=== PATIENT | female | born 1980 | race Hispanic/Latino ===

== ENCOUNTER → 2020-01-15 15:24 | Outpatient (CLI) | payer OTHER, SELFPAY ==
--- NOTE | ~2020-01-15 | MM_ITS ---
EXAMINATION: MM screening melia BI w alla HISTORY: Screening mammogram TECHNIQUE: Craniocaudal and mediolateral oblique 3-D tomosynthesis images were obtained and synthetic 2-D images were generated. CAD analysis was submitted and interpreted. COMPARISON: 01/10/2019 BREAST PARENCHYMAL COMPOSITION: The breasts are extremely dense, which lowers the sensitivity of mamm ography. FINDINGS: There is a developing focal asymmetry superiorly in the right breast on MLO view. There is also a focal asymmetry lower inner quadrant of the left breast which is obscured by dense fibroglandu lar tissue. IMPRESSION: 1. Bilateral breast asymmetries. 2. Additional mammographic views and possible breast ultrasound are recommended. BI-RADS Category 0: Incomplete: Needs additional imaging evaluation. Reviewed, dictated and finalized at location A. IMPRESSION: 1. Bilateral breast asymmetries. 2. Additional mammographic views and possible breast ultrasound are recommended . BI-RADS Category 0: Incomplete: Needs additional imaging evaluation.
== END ==
PROVIDERS: Visit Provider Obstetrics & Gynecology
DX: Z12.31 Encounter for screening mammogram for malignant neoplasm of breast (principal); R92.8 Other abnormal and inconclusive findings on diagnostic imaging of breast
CPT/HCPCS: 77063; 77067

== ENCOUNTER 2020-02-02 12:20 | Outpatient (CLI) | payer OTHER, SELFPAY ==
--- NOTE | ~2020-02-02 | MMUS_ITS ---
EXAMINATION: MM diagnostic mammo BI, US breast BI complete HISTORY: Bilateral mammographic asymmetry reported on 01/15/2020 screening mammogram TECHNIQUE: Additional 3-D tomosynthesis images of both breasts were performed and synthetic 2-D image s were generated. CAD analysis was submitted and interpreted. High resolution bilateral complete steve st ultrasound was performed. COMPARISON: 01/15/2020, 01/20/2019 bilateral digital screening mammogram examinations BREAST PARENCHYMAL COMPOSITION: The breasts are extremely dense, which lowers the sensitivity of mamm ography. FINDINGS: MAMMOGRAPHIC FINDINGS: No reproducible suspicious mass or architectural distortion is evident on these supplemental views. However, the dense stroma may obscure masses. For this reason, complete bilateral breast ultrasound e xamination was performed. ULTRASOUND: No suspicious mass or shadowing of either breast is evident. Right breast: 3:00 near nipple: 1.7 x 6.4 x 4.9 mm parallel circumscribed hypoechoic lesion, without suspicious sha dowing or internal vascularity, benign features 3:00 2 cm from nipple: 5.2 x 1.6 x 5.0 mm cyst 7:00 2 cm from nipple: Parallel circumscribed hypoechoic 1.7 x 3.9 x 4.3 mm lesion without posterior shadowing or internal vascularity, with benign features Left breast: 3:00 3 cm from nipple: 6.6 x 2.5 x 5.1 mm parallel circumscribed hypoechoic lesion without internal v ascularity or posterior shadowing, benign features 4:00: Parallel circumscribed 1.4 x 2.5 mm hypoechoic lesion without suspicious shadowing or internal vascularity, benign features 7:00: 6.3 x 3.2 x 5.5 mm cyst 8:00 4 cm from nipple: 4.9 x 2.4 x 3.7 mm cyst with through transmission posterior enhancement Subareolar 2.7 x 3.6 x 4.4 mm cyst IMPRESSION: 1. Bilateral benign breast findings 2. No mammographic evidence of malignancy BI-RADS Category 2: Benign finding(s). Reviewed, dictated and finalized at location A. IMPRESSION: 1. Bilateral benign breast findings 2. No mammographic evidence of malignancy BI-RADS Category 2: Benign finding(s).
== END 2020-02-02 12:21 | disposition home or self-care (01) ==
PROVIDERS: Visit Provider Obstetrics & Gynecology
DX: R92.8 Other abnormal and inconclusive findings on diagnostic imaging of breast (principal)
CPT/HCPCS: 76641; 77066

== ENCOUNTER → 2020-07-04 16:13 | Outpatient (CLI) | payer OTHER, SELFPAY ==
--- NOTE | ~2020-07-04 | XR_ITS ---
EXAMINATION: XR thoracic spine 3V, XR lumbar spine 2-3V DATE: 07/04/2020 17:10 INDICATION: Middle and low back pain. TECHNIQUE: 1. One AP, lateral and lateral swimmer's views of the thoracic spine were obtained. 2. AP, lateral and coned-down lumbosacral views of the lumbar spine were obtained. COMPARISON: None. FINDINGS: Thoracic spine: 14 degree thoracic dextroscoliosis measured between T4 and T10. Vertebral body heights are normal. Mi ld disc height loss and mild degenerative endplate changes at a few levels in the midthoracic spine. Cardiomediastinal silhouette is normal. Visualized portions of the lungs are clear. Lumbar spine: 2 mm retrolisthesis L5 on S1. Alignment is otherwise normal. Vertebral body and disc heights are norm al. Mild lower lumbar facet osteoarthritis. IMPRESSION: 1. 14 degree thoracic dextroscoliosis with minimal spondylosis. 2. 2 mm retrolisthesis L5 on S1 with mild lower lumbar facet osteoarthritis. Reviewed, dictated and finalized at location A. IMPRESSION: 1. 14 degree thoracic dextroscoliosis with minimal spondylosis. 2. 2 mm retrolisthesis L5 on S1 with mild lower lumbar facet osteoarthritis.
== END ==
DX: M51.37 Other intervertebral disc degeneration, lumbosacral region (principal)
CPT/HCPCS: 72072; 72100

== ENCOUNTER 2020-08-30 13:42 | Outpatient (CLI) | payer OTHER, SELFPAY ==
--- NOTE | ~2020-08-30 | MR_ITS ---
EXAMINATION: MR thoracic spine wo con DATE: 08/30/2020 14:33 INDICATION: Scoliosis, unspecified. TECHNIQUE: Magnetic resonance imaging (MRI) of the thoracic spine was performed without intravenous c ontrast. Sagittal localizer T1-weighted FSE of the cervical spine was obtained. Thoracic spine sequen mylene included sagittal T2-weighted FSE, sagittal T1-weighted FSE, sagittal STIR FSE, and axial T2-weig hted FSE. COMPARISON: Thoracic spine radiographs 07/04/2020 FINDINGS: There is kyphosis of cervical spine. There is 11 degrees dextroscoliosis of thoracic spine. Vertebral body heights are normal. There is mildly decreased disc height from T3-T4 through T7-T8. T he discs are mildly bulging from T3-T4 through T6-T7 with mild central canal stenosis. There is multi level mild facet joint osteoarthritis. No neural foraminal stenosis. The spinal cord signal intensity is normal. IMPRESSION: 1. Mild thoracic spondylosis. 2. Thoracic dextroscoliosis. 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
== END 2020-08-30 13:43 | disposition home or self-care (01) ==
PROVIDERS: PCP Internal Medicine; Visit Provider Nurse Practitioner
DX: M41.9 Scoliosis, unspecified (principal)
CPT/HCPCS: 72146

== ENCOUNTER → 2021-02-27 16:01 | Outpatient (CLI) | payer OTHER, SELFPAY ==
--- NOTE | ~2021-02-27 | MM_ITS ---
EXAMINATION: MM screening melia BI w alla HISTORY: Screening mammogram TECHNIQUE: Craniocaudal and mediolateral oblique 3-D tomosynthesis images were obtained and synthetic 2-D images were generated. CAD analysis was submitted and interpreted. COMPARISON: 02/02/2020 bilateral diagnostic digital mammogram and complete bilateral breast ultrasound 01/15/2020, 01/20/2019 bilateral digital screening mammogram examinations BREAST PARENCHYMAL COMPOSITION: The breasts are extremely dense, which lowers the sensitivity of mamm ography. FINDINGS: There is no evidence of suspicious mass, calcification, or architectural distortion to sugg est malignancy in either breast. There has been no suspicious interval change. IMPRESSION: 1. No mammographic evidence of malignancy. 2. Recommend routine screening mammography in one year. BI-RADS Category 1: Negative Reviewed, dictated and finalized at location A.
== END ==
PROVIDERS: Visit Provider Advanced Practice Midwife
DX: Z12.31 Encounter for screening mammogram for malignant neoplasm of breast (principal)
CPT/HCPCS: 77063; 77067

== ENCOUNTER → 2022-07-07 14:32 | Outpatient (CLI) | payer OTHER, SELFPAY ==
--- NOTE | ~2022-07-07 | MM_ITS ---
EXAMINATION: MM screening [facility] BI w alla HISTORY: Screening mammogram TECHNIQUE: Craniocaudal and mediolateral oblique 3-D tomosynthesis images were obtained and synthetic 2-D images were generated. CAD analysis was submitted and interpreted. COMPARISON: 02/27/2021, 02/02/2020, 01/15/2020 BREAST PARENCHYMAL COMPOSITION: The breasts are heterogeneously dense, which may obscure small masses . FINDINGS: No suspicious mass, calcification, or architectural distortion are identified in either shahrzad ast to suggest malignancy. There has been no suspicious interval change. IMPRESSION: 1. No mammographic evidence of malignancy. 2. Recommend routine screening mammography in one year. BI-RADS Category 1: Negative Reviewed, dictated and finalized at location A.
== END ==
PROVIDERS: PCP Advanced Practice Midwife; Visit Provider Nurse Practitioner
DX: Z12.31 Encounter for screening mammogram for malignant neoplasm of breast (principal)
CPT/HCPCS: 77063; 77067

== ENCOUNTER 2024-01-05 12:55 | Emergency (ER) | payer OTHER, SELFPAY ==
[2024-01-05 13:04] VITALS: BP 116/78; PULSE 80; RESP 16; TEMP 37.4; O2SAT 100
--- NOTE | 2024-01-05 13:10 | ED.ANIMALBIT ---
HPI - Animal Bite General Chief Complaint: Animal Bite Stated Complaint: DOG BITE Time Seen by Provider: 01/05/24 13:05 Source: patient and family Mode of arrival: ambulatory Limitations: no limitations History of Present Illness HPI narrative: Inna is a 43-year-old female patient presenting to the clinic today with complaints of a dog bite to the left wrist. She reports that this was a provoked bite from her own dog. States the dog was injured when the bit occured. She reports the dog's immunizations were up-to-date. States that the bite occurred last night and she cleansed the area after the bite and then covered it and over the night it became more red and swollen and tender. Had to put the dog down because it broke its back. She denies any fever, chills, body aches. She is not diabetic. Tetanus is not up-to-date Related Data Home Medications Medication Instructions Recorded Confirmed norethindrone 1 mg-ethinyl 1 tablet PO DAILY 08/22/20 01/05/24 estradiol 10 mcg (24)-iron 10 mcg(2) tablet (Lo Loestrin Fe) Allergies Allergy/AdvReac Type Severity Reaction Status Date / Time Penicillins Allergy Fever Verified 01/05/24 13:12 Review of Systems Review of Systems: Pertinent positives per HPI. Patient denies any fever, chills, rash, headache, visual changes, dizziness, cough, runny nose, sore throat, shortness of breath, chest pain, palpitations, nausea, vomiting, diarrhea, constipation, abdominal pain, or any urinary issues. PMFSH Surgical History Surgical History H/O removal of cyst breast (benign) 2000 Family History Family History Grandparent Diabetes mellitus Grandparent Brain tumor Social History Social History Smoking status: Never smoker Alcohol intake: current Alcohol use details: occasional Comments At the time of my signature, I reviewed and agree with the nursing past medical, surgical, social, and family history. There is no relevant family history pertinent to the patient complaint. Exam Narrative: General: Well-developed, well nourished, in no apparent distress Head: Normocephalic, atraumatic. Cardio: Regular rate and rhythm, s1 and s2 normal, no murmur appreciated. Resp: Clear to auscultation bilaterally, no rhonchi, rales, wheezing or rubs. Integumentary: [place], warm, and dry, tender area measuring 1.5 x 2 cm of induration without fluctuance- redness, mild erythema, and swelling noted to the left lateral wrist, no obvious abscess, rings were removed in the clinic today Course Course Emergency Course: Portions of this record may have been created with voice recognition software. Level of Care: Express Care Visit Vital Signs Vital signs: Vital Signs Temperature 37.4 C 01/05/24 13:04 Pulse Rate 80 01/05/24 13:04 Respiratory Rate 16 01/05/24 13:04 Blood Pressure 116/78 01/05/24 13:04 Pulse Oximetry 100 01/05/24 13:04 Temperature 37.4 C 01/05/24 13:04 Pulse Rate 80 01/05/24 13:04 Respiratory Rate 16 01/05/24 13:04 Blood Pressure 116/78 01/05/24 13:04 Pulse Oximetry 100 01/05/24 13:04 Vital signs reviewed MDM - Animal Bite MDM Narrative Medical decision making narrative: At the time of visit patient is resting comfortably on the exam table. Patient appears to be nontoxic. Plan: Consent obtained for ring removal the clinic today. Patient has infected puncture wound to the left wrist due to a dog bite. Tdap updated. States she is allergic to penicillin. Prescription for Bactrim and metronidazole was sent to the pharmacy. Discussed if the area gets any worse to go to the ER as she may need IV antibiotics. Supportive measures were discussed with the patient and they voiced understanding discharge instructions and agrees to treatment p
[2024-01-05] MEDS: TETANUS,DIPHTHERIA,AC PERTUSSIS ADULT (0.5 ML) BOOSTRIX IM (13:21)
--- NOTE | 2024-01-05 13:53 | PC.NURSE ---
WEDDING RINGS WERE TAKEN OFF BY PT, GOLD TONE RING WAS CUT OFF BY RN DUE TO HAND AND FINGER SWELLING. ALL RINGS WERE RETURNED TO PT.
--- NOTE | 2024-01-05 13:56 | PC.NURSE ---
PT REPORTS HER DOG WAS HURT AND SHE REACHED OUT TO HELP HER WHEN SHE WAS BITTEN. PT REPORTS THEY HAD TO PUT THE DOG DOWN, DOG BITE FORM WAS COMPLETED AND FAXED TO [facility]. SWELLING IS NOTED TO LEFT HAND AND FINGERS, RINGS REMOVED.
== END 2024-01-05 13:52 | disposition home or self-care (01) ==
PROVIDERS: Emergency Provider Nurse Practitioner Family
DX: S61.532A Puncture wound without foreign body of left wrist, initial encounter (principal); L08.9 Local infection of the skin and subcutaneous tissue, unspecified; W54.0XXA Bitten by dog, initial encounter; Z23 Encounter for immunization
CPT/HCPCS: 90471; 90715; 99213; G0463

== ENCOUNTER 2024-01-05 20:25 | Observation (INO) | payer OTHER, SELFPAY ==
--- NOTE | ~2024-01-05 | XR_ITS ---
Left wrist Technique: PA, oblique, lateral, and ulnar deviation views were obtained. Clinical History: Dog bite Findings: No acute fracture or dislocation is seen. Osseous alignment is anatomic. Joint spaces are p reserved. Soft tissues are unremarkable. Impression: Unremarkable left wrist radiographs. Reviewed, dictated and finalized at location . Impression: Unremarkable left wrist radiographs.
[2024-01-05 20:43] VITALS: BP 135/72; PULSE 80; RESP 14; TEMP 37.1; O2SAT 98
--- NOTE | 2024-01-05 23:33 | ED.ANIMALBIT ---
HPI - Animal Bite General Chief Complaint: Animal Bite <JESSICA Perez Last Filed: 01/06/24 01:26> Stated Complaint: dog bite yesterday <JESSICA Perez Last Filed: 01/06/24 01:26> Time Seen by Provider: 01/05/24 22:50 <JESSICA Perez Last Filed: 01/06/24 01:26> Source: patient <JESSICA Perez Last Filed: 01/06/24 01:26> Mode of arrival: ambulatory <JESSICA Perez Last Filed: 01/06/24 01:26> Limitations: no limitations <JESSICA Perez Last Filed: 01/06/24 01:26> History of Present Illness HPI narrative: This is a 43-year-old female that presents to the emergency department for left wrist pain and swelling. Reports she was bit by her dog last night. Her dog is up-to-date on its vaccinations. She was seen in urgent care today and updated on her tetanus vaccination and started on oral antibiotics. Reports she has continued to get worse since then in started to note streaking up her arm which prompted her to be seen in the ER. Denies fevers or drainage. <JESSICA Perez Last Filed: 01/06/24 01:26> Related Data Home Medications: Home Medications Medication Instructions Recorded Confirmed norethindrone 1 mg-ethinyl 1 tablet PO DAILY 08/22/20 01/06/24 estradiol 10 mcg (24)-iron 10 mcg(2) tablet (Lo Loestrin Fe) <JESSICA Perez Last Filed: 01/06/24 01:26> Allergies/Adverse Reactions: Allergies Allergy/AdvReac Type Severity Reaction Status Date / Time Penicillins Allergy Fever Verified 01/05/24 20:26 <JESSICA Perez Last Filed: 01/06/24 01:26> Review of Systems Review of Systems: CONSTITUTIONAL: Denies fever SKIN: Reports erythema MUSCULOSKELETAL: Denies joint pain <JESSICA Perez Last Filed: 01/06/24 01:26> All systems reviewed & are unremarkable except as noted in HPI and below <Gita Disla PA-C - Last Filed: 01/06/24 01:26> PMFSH Past Medical History Medical History: Medical History (Updated 01/06/24 @ 01:16 by Gita Disla PA-C) No active medical problems <Gita Disla PA-C - Last Filed: 01/06/24 01:26> Surgical History Surgical History: Surgical History H/O removal of cyst breast (benign) 2000 <Gita Disla PA-C - Last Filed: 01/06/24 01:26> Family History Family History: Family History Grandparent Diabetes mellitus Grandparent Brain tumor <Gita Disla PA-C - Last Filed: 01/06/24 01:26> Social History Social History: Social History Smoking status: Never smoker Alcohol intake: former Alcohol use details: occasional Substance use: never Do You Feel Safe in your Home?: Yes Lack of Transportation: No Lack of Food: Never True Current Housing: I Have Housing Concerned About Future Housing: No Difficulty Paying Gas/Electric Bills: No Difficulty Paying for Meds: No Currently Unemployed: No Education: Master's Degree or Higher Difficulty w/ Childcare or Family Care: No Spiritual care concerns: No <Gita Disla PA-C - Last Filed: 01/06/24 01:26> Exam Narrative: GENERAL: Well-appearing, well-nourished, and in no acute distress. HEAD: Normocephalic, atraumatic. EYES: EOMI. CHEST: No respiratory distress HEART: Regular rate EXTREMITIES: Normal range of motion. Left wrist and hand with erythema and edema without focal fluctuance. Small puncture wound noted to the dorsal aspect of the wrist. Normal radial pulse. Normal sensation SKIN: Warm, dry, no rash. NEURO: No focal deficits. Alert and oriented x3. PSYCH: Normal mood and affect <Gita Disla PA-C - Last Filed: 01/06/24 01:26> Course Course Emergency Course: Patient updated on her workup and recommendation for admission
[2024-01-05 23:58] LABS: Basophils Percent Auto 0.2 % (0.2-1.2); Eosinophils Absolute Auto 0.1 K/mm3 (0-0.3); Eosinophils Percent Auto 0.8 % (0-4.4); Hematocrit 41.6 % (37.0-47.0); Hemoglobin 13.9 g/dL (12.0-15.0); Immature Granulocyte Absolute 0.05 K/mm3 (0.00-0.031); Immature Granulocyte Percent A 0.4 % (0-0.5); Lymphocytes Absolute Auto 1.71 K/mm3 (0.9-3.2); Lymphocytes Percent Auto 12.8 % (18.3-44.2); Mean Corpuscular HGB Conc 33.4 g/dl (32-36); Mean Corpuscular Hemoglobin 29.6 pg (26-34); Mean Corpuscular Volume 88.7 fl (80-100); Monocytes Absolute Auto 0.7 K/mm3 (0.1-0.6); Monocytes Percent Auto 5.5 % (2.6-8.5); Neutrophils Absolute Auto 10.8 K/mm3 (1.3-6.7); Neutrophils Percent Auto 80.3 % (45.5-73.1); Platelet Count Result 237 k/mm3 (150-375); Red Blood Count 4.69 M/mm3 (4.2-5.4); Red Cell Distribution Width 13.9 % (11.5-14.5); White Blood Count 13.4 K/mm3 (4.5-10.0)
[2024-01-06] VITALS (7 sets, daily range): BP systolic 109–136; BP diastolic 61–76; PULSE 65–85; RESP 16–18; TEMP 36.2–36.6; O2SAT 100; BMI 24.6
[2024-01-06 00:11] LABS: Anion Gap 8 mmol/L (4-12); Blood Urea Nitrogen 9 mg/dL (7-17); CRP 4.6 mg/dL (<1.0); Calcium 9.3 mg/dL (8.4-10.2); Carbon Dioxide 24 mmol/L (22-30); Chloride 107 mmol/L (98-107); Estimated Glomerular Filt Rate > 60; Glucose 105 mg/dL (65-110); Potassium 3.7 mmol/L (3.4-5.0); Sodium 139 mmol/L (137-145)
[2024-01-06 00:27] LABS: Erythrocyte Sedimentation Rate 25 mm/hr (0-20)
[2024-01-06] MEDS: cefTRIAXone 2 GM/NS 100 ML 2 GM/100 ML BAG IVPB (01:25)
[2024-01-06] MEDS: metroNIDAZOLE 500 MG/ISO 100ML 500 MG/100 ML BAG 100 MG IVPB ×3 (01:25→16:52)
--- NOTE | 2024-01-06 03:55 | ADMGEN ---
This patient, Deidra Cassidy, was admitted to Medical Room 343-01. Patient/family oriented to hospital policies and general routines including ID bracelet, bed and alarms, visiting hours, pain management, procedures, bathroom and other care routines, personal items, smoking policy, room service/diet, and visiting hours. Information on how to activate the Rapid Response Team has been discussed. Patient/Family are encouraged to report perceived risks to care and to ask questions if they do not understand what they are told or what they should do.
[2024-01-06] MEDS: MORPHINE SULFATE (*CRX) 2 MG/ML INJ 1 MG IV PUSH (04:23)
--- NOTE | 2024-01-06 05:46 | PM.IMHP ---
H&P: HPI History of Present Illness Date/Time: 01/06/24 05:46 Chief Complaint: Left wrist pain Narrative: A 43-year-old female presented to the emergency room with left wrist pain and swelling. Reports she was bit by a dog last night. Her dog is fully vaccinated. Patient went to urgent care center and received a tetanus vaccine and was started on oral antibiotics. Patient wrist pain continued to get worse and the hand was more tender she started feeling some tightness around the wrist band denied fever drainage. No nausea no vomiting no hematemesis Review of Systems Review of Systems: No fevers chills nausea vomiting. No double vision no blurry vision. No difficulty hearing or sinus complaints. No chest pain shortness of breath fever palpitation dizziness ankle swelling. No coughing wheezing chills. No nausea constipation diarrhea abdominal pain reflux. No urgency frequency of urination. No hematuria. skin rash left wrist No anxiety depression difficulty sleeping. No bleeding gums enlarged glands. No muscle ache back pain joint stiffness. No loss of strength numbness headache tremor or loss of memory. [facility] Past Medical History Medical History (Updated 01/06/24 @ 01:16 by Gita Disla PA-C) No active medical problems Surgical History Surgical History H/O removal of cyst breast (benign) 2000 Family History Family History Grandparent Diabetes mellitus Grandparent Brain tumor Social History Social History Smoking status: Never smoker Alcohol intake: former Alcohol use details: occasional Substance use: never Do You Feel Safe in your Home?: Yes Lack of Transportation: No Lack of Food: Never True Current Housing: I Have Housing Concerned About Future Housing: No Difficulty Paying Gas/Electric Bills: No Difficulty Paying for Meds: No Currently Unemployed: No Education: Master's Degree or Higher Difficulty w/ Childcare or Family Care: No Spiritual care concerns: No Meds Home Medications and Allergies Home Medications Medication Instructions Recorded Confirmed Type norethindrone 1 mg-ethinyl 1 tablet PO DAILY 08/22/20 01/06/24 History estradiol 10 mcg (24)-iron 10 mcg(2) tablet (Lo Loestrin Fe) Allergies Allergy/AdvReac Type Severity Reaction Status Date / Time Penicillins Allergy Fever Verified 01/05/24 20:26 Vital Signs Vital Signs - 24 hr 01/05/24 20:43 01/06/24 00:29 01/06/24 02:04 Temperature 37.1 C Pulse Rate 80 70 65 Respiratory Rate 14 16 16 Blood Pressure 135/72 136/76 112/73 Pulse Oximetry 98 100 100 Oxygen Delivery Room Air 01/06/24 03:37 01/06/24 04:33 Temperature 36.5 C Pulse Rate 85 78 Respiratory Rate 16 18 Blood Pressure 109/68 124/72 Pulse Oximetry 100 100 Oxygen Delivery Exam Narrative: GENERAL: Well appearing, no acute distress. HEAD: Normocephalic, atraumatic. NECK: Supple. No adenopathy, no masses. RESPIRATORY: respirations nonlabored. , no rales, wheezing. CARDIOVASCULAR: Regular rate and rhythm without murmurs, . Peripheral pulses 2+ and equal bilaterally. ABDOMINAL: Soft, nontender, nondistended, no hepatosplenomegaly. Normoactive BS. MUSCULOSKELETAL: no Epigastric and no hypochondrial tenderness SKIN: . Left wrist and hand with erythema and edema without focal fluctuance. Small puncture wound noted to the dorsal aspect of the wrist. Normal radial pulse. Normal sensation NEURO: A&O X3. Moves all extremities H&P: Results Labs Labs: Short CBC 01/05/24 Range/Units 23:50 WBC 13.4 H (4.5-10.0) K/mm3 Hgb 13.9 (12.0-15.0) g/dL Hct 41.6 (37.0-47.0) % Plt Count 237 (150-375) k/mm3 [facility] 01/05/24 23:50 Sodium 139 Potassium 3.7 Chloride 107 Carbon Di
[2024-01-06 06:00] LABS: Basophils Percent Auto 0.3 % (0.2-1.2); Eosinophils Absolute Auto 0.1 K/mm3 (0-0.3); Eosinophils Percent Auto 0.9 % (0-4.4); Hematocrit 39.7 % (37.0-47.0); Hemoglobin 13.4 g/dL (12.0-15.0); Immature Granulocyte Absolute 0.04 K/mm3 (0.00-0.031); Immature Granulocyte Percent A 0.4 % (0-0.5); Lymphocytes Absolute Auto 1.16 K/mm3 (0.9-3.2); Lymphocytes Percent Auto 11.6 % (18.3-44.2); Mean Corpuscular HGB Conc 33.8 g/dl (32-36); Mean Corpuscular Hemoglobin 29.8 pg (26-34); Mean Corpuscular Volume 88.4 fl (80-100); Monocytes Absolute Auto 0.6 K/mm3 (0.1-0.6); Monocytes Percent Auto 5.5 % (2.6-8.5); Neutrophils Absolute Auto 8.2 K/mm3 (1.3-6.7); Neutrophils Percent Auto 81.3 % (45.5-73.1); Platelet Count Result 203 k/mm3 (150-375); Red Blood Count 4.49 M/mm3 (4.2-5.4); Red Cell Distribution Width 13.8 % (11.5-14.5)
[2024-01-06 06:44] LABS: Anion Gap 7 mmol/L (4-12); Blood Urea Nitrogen 8 mg/dL (7-17); Calcium 8.8 mg/dL (8.4-10.2); Carbon Dioxide 21 mmol/L (22-30); Chloride 111 mmol/L (98-107); Estimated Glomerular Filt Rate > 60; Glucose 101 mg/dL (65-110); Sodium 139 mmol/L (137-145)
[2024-01-06] MEDS: ACETAMINOPHEN 325 MG TABLET 650 MG PO ×3 (06:49→16:54)
--- NOTE | 2024-01-06 09:15 | PM.IMPN ---
Progress Note: A&P Assessment and Plan (1) Cellulitis of left upper extremity: Code(s): L03.114 - Cellulitis of left upper limb Status: Acute (2) Scoliosis deformity of spine: Code(s): M41.9 - Scoliosis, unspecified Status: Acute Plan (1) Cellulitis of left upper extremity: ?Code(s): L03.114 - Cellulitis of left upper limb ?Status:?Acute Plan Cellulitis/dog bite/left wrist pain IV fluid resuscitation Monitor lactic acid levels Repeat CBC CMP Two sets of Blood cultures IV antibiotics Rocephin Wound care consult.? Watch for any severe pain and compartment syndrome xr showed Unremarkable left wrist radiographs. Radial pulses palpable Continue ceftriaxone 2 g IV, Flagyl 500 mg q.8 hour IV, add clindamycin 900 mg q.day are IV Subjective Date/time seen: 01/06/24 09:15 Interval history: I saw exam patient today, patient still has severe left arm pain, the left arm was swollen, tender by palpation. Patient denies fever, chills, chest pain, shortness of breath, abdomen pain, nausea vomiting diarrhea Exam Narrative: GENERAL: Well appearing, no acute distress. HEAD: Normocephalic, atraumatic. NECK: Supple. No adenopathy, no masses. RESPIRATORY: respirations nonlabored. , no rales, wheezing. CARDIOVASCULAR: Regular rate and rhythm without murmurs, . Peripheral pulses 2+ and equal bilaterally. ABDOMINAL: Soft, nontender, nondistended, no hepatosplenomegaly. Normoactive BS. MUSCULOSKELETAL: no Epigastric and no hypochondrial tenderness SKIN: . Left wrist and hand with erythema and edema without focal fluctuance. Small puncture wound noted to the dorsal aspect of the wrist. Normal radial pulse. Normal sensation NEURO: A&O X3. Moves all extremities Objective Data Vital Signs Vital Signs: Vital Signs - 24 hr 01/05/24 20:43 01/06/24 00:29 01/06/24 02:04 Temperature 98.8 F Pulse Rate 80 70 65 Respiratory Rate 14 16 16 Blood Pressure 135/72 136/76 112/73 Pulse Oximetry 98 100 100 Oxygen Delivery Room Air 01/06/24 03:37 01/06/24 04:33 01/06/24 06:00 Temperature 97.7 F 97.7 F Pulse Rate 85 78 65 Respiratory Rate 16 18 18 Blood Pressure 109/68 124/72 116/63 Pulse Oximetry 100 100 100 Oxygen Delivery 01/06/24 08:00 Temperature Pulse Rate Respiratory Rate Blood Pressure Pulse Oximetry Oxygen Delivery Room Air Intake/Output Intake/Output: Intake & Output 01/03/24 01/04/24 01/05/24 01/06/24 23:59 23:59 23:59 23:59 Intake Total 750 Balance 750 Meds/Results Medications: Active Medications Generic Name Dose Route Start Last Admin Trade Name Freq PRN Reason Stop Dose Admin Acetaminophen 650 mg 01/06/24 05:43 01/06/24 06:49 Acetaminophen 325 Mg Tablet PO 650 mg Q4H PRN Administration Mild Pain (1-3) or Fever Hydrocodone Bitart/Acetaminophen 1 tab 01/06/24 05:43 Hydrocodone/Acetaminophen (*Crx) 5-325 Mg Tablet PO Q4H PRN Moderate Pain (4-6) Ceftriaxone Sodium 2 gm in 100 mls @ 200 mls/hr 01/07/24 01:00 Rocephin 2 Gm/Ns 100 Ml IVPB Q24H MANDIE Metronidazole 500 mg in 100 mls @ 100 mls/hr 01/06/24 09:00 01/06/24 08:48 Flagyl 500 Mg/Iso Soln 100 Ml IVPB 100 mls/hr Q8H MANDIE Administration Miscellaneous Information 0 each 01/06/24 06:20 Norethindrone-E.Estradiol-Iron [Lo Loestrin Fe] 1 Mg-10 Mcg (24)/10 Mcg- Nonformulary. Ple XX 02/05/24 06:19 CLARIFY MANDIE Morphine Sulfate 1 mg 01/06/24 04:08 01/06/24 04:23 Morphine Sulfate (*Crx) 2 Mg/Ml Inj IV PUSH 1 mg Q4H PRN Administration Pain Non-Formulary Medication 1 tablet 01/06/24 09:00 Norethindrone-E.Estradiol-Iron [Lo Loestrin Fe] PO 02/05/24 08:59 DAILY [facility] Radiology Results: ITS Impressions Wrist X-Ray 01/06/24 05:39 Impression: Unremarkable left wrist radiographs. Labs Labs: Laboratory Results - last 24 hr 01/05/24 01/06/24 23:50 05:53 WBC 13.4 H 10.
[2024-01-06] MEDS: CLINDAMYCIN 900 MG/D5W 50 ML 900 MG/50 ML PIGGYBACK 50 MG IVPB (17:59)
[2024-01-07] MEDS: ACETAMINOPHEN 325 MG TABLET 650 MG PO
[2024-01-07] MEDS: cefTRIAXone 2 GM/NS 100 ML 2 GM/100 ML BAG IVPB (00:01)
[2024-01-07] MEDS: CLINDAMYCIN 900 MG/D5W 50 ML 900 MG/50 ML PIGGYBACK 50 MG IVPB ×3 (00:31→17:06)
[2024-01-07] MEDS: metroNIDAZOLE 500 MG/ISO 100ML 500 MG/100 ML BAG 100 MG IVPB ×3 (00:31→18:20)
[2024-01-07 06:00] VITALS: BP 105/56; PULSE 70; RESP 18; TEMP 36.4; O2SAT 100
[2024-01-07] MEDS: SACCHAROMYCES BOULARDII 250 MG CAPSULE PO ×2 (09:03→17:05)
[2024-01-07] MEDS: ONDANSETRON INJ 4 MG/2 ML VIAL IV PUSH (09:03)
--- NOTE | 2024-01-07 09:10 | PM.IMPN ---
Progress Note: A&P Assessment and Plan (1) Cellulitis of left upper extremity: Code(s): L03.114 - Cellulitis of left upper limb Status: Acute (2) Scoliosis deformity of spine: Code(s): M41.9 - Scoliosis, unspecified Status: Acute Plan (1) Cellulitis of left upper extremity: ?Code(s): L03.114 - Cellulitis of left upper limb ?Status:?Acute Plan Cellulitis/dog bite/left wrist pain IV fluid resuscitation Monitor lactic acid levels Repeat CBC CMP Two sets of Blood cultures IV antibiotics Rocephin Wound care consult.? Watch for any severe pain and compartment syndrome xr showed Unremarkable left wrist radiographs. Radial pulses palpable Continue ceftriaxone 2 g IV, Flagyl 500 mg q.8 hour IV, add clindamycin 900 mg q.day are IV 01/06: Cellulitis of left arm has subsided significantly, c/w current abx, may change to oral abx tm and discharge patient Subjective Date/time seen: 01/07/24 09:10 Interval history: I saw exam patient today, cellulitis of left arm has subsided significantly, still has some tenderness around bite wound. Patient denies fever, chills, chest pain, shortness of breath, abdomen pain, but has nausea vomiting, and some loose stools Exam Narrative: GENERAL: Well appearing, no acute distress. HEAD: Normocephalic, atraumatic. NECK: Supple. No adenopathy, no masses. RESPIRATORY: respirations nonlabored. , no rales, wheezing. CARDIOVASCULAR: Regular rate and rhythm without murmurs, . Peripheral pulses 2+ and equal bilaterally. ABDOMINAL: Soft, nontender, nondistended, no hepatosplenomegaly. Normoactive BS. MUSCULOSKELETAL: no Epigastric and no hypochondrial tenderness SKIN: . Small puncture wound noted to the dorsal aspect of the wrist. Normal radial pulse. Normal sensation NEURO: A&O X3. Moves all extremities Objective Data Vital Signs Vital Signs: Vital Signs - 24 hr 01/06/24 14:37 01/06/24 20:00 01/06/24 23:59 Temperature 97.1 F L 97.8 F Pulse Rate 71 72 Respiratory Rate 18 18 Blood Pressure 126/71 112/61 Pulse Oximetry 100 100 Oxygen Delivery Room Air 01/07/24 06:00 Temperature 97.6 F Pulse Rate 70 Respiratory Rate 18 Blood Pressure 105/56 L Pulse Oximetry 100 Oxygen Delivery Intake/Output Intake/Output: Intake & Output 01/04/24 01/05/24 01/06/24 01/07/24 23:59 23:59 23:59 23:59 Intake Total 2820 250 Balance 2820 250 Meds/Results Medications: Active Medications Generic Name Dose Route Start Last Admin Trade Name Freq PRN Reason Stop Dose Admin Acetaminophen 650 mg 01/06/24 05:43 01/07/24 00:00 Acetaminophen 325 Mg Tablet PO 650 mg Q4H PRN Administration Mild Pain (1-3) or Fever Hydrocodone Bitart/Acetaminophen 1 tab 01/06/24 05:43 Hydrocodone/Acetaminophen (*Crx) 5-325 Mg Tablet PO Q4H PRN Moderate Pain (4-6) Ceftriaxone Sodium 2 gm in 100 mls @ 200 mls/hr 01/07/24 01:00 01/07/24 00:31 Rocephin 2 Gm/Ns 100 Ml IVPB Infused Q24H AMNDIE Infusion Metronidazole 500 mg in 100 mls @ 100 mls/hr 01/06/24 09:00 01/07/24 01:31 Flagyl 500 Mg/Iso Soln 100 Ml IVPB Infused Q8H MANDIE Infusion Clindamycin Phosphate 900 mg in 50 mls @ 50 mls/hr 01/06/24 17:00 01/07/24 09:03 Cleocin 900 Mg/D5w 50 Ml IVPB 50 mls/hr Q8H MANDIE Administration Morphine Sulfate 1 mg 01/06/24 04:08 01/06/24 04:23 Morphine Sulfate (*Crx) 2 Mg/Ml Inj IV PUSH 1 mg Q4H PRN Administration Pain Ondansetron HCl 4 mg 01/07/24 08:15 01/07/24 09:03 Ondansetron Inj 4 Mg/2 Ml Vial IV PUSH 4 mg Q4H PRN Administration Nausea And Vomiting Saccharomyces Boulardii 250 mg 01/07/24 09:00 01/07/24 09:03 Saccharomyces Boulardii 250 Mg Capsule PO 250 mg BID MANDIE Administration Radiology Results: ITS Impressions Wrist X-Ray 01/06/24 05:39 Impression: Unremarkable left wrist radiographs.
[2024-01-07 10:24] LABS: Hematocrit 38.5 % (37.0-47.0); Hemoglobin 13.2 g/dL (12.0-15.0); Mean Corpuscular HGB Conc 34.3 g/dl (32-36); Mean Corpuscular Hemoglobin 30.1 pg (26-34); Mean Corpuscular Volume 87.7 fl (80-100); Mean Platelet Volume 11.1 fl (7.4-10.4); Platelet Count Result 204 k/mm3 (150-375); Red Blood Count 4.39 M/mm3 (4.2-5.4); Red Cell Distribution Width 13.7 % (11.5-14.5); White Blood Count 10.5 K/mm3 (4.5-10.0)
[2024-01-07 10:37] LABS: Anion Gap 8 mmol/L (4-12); Blood Urea Nitrogen 9 mg/dL (7-17); Calcium 8.6 mg/dL (8.4-10.2); Carbon Dioxide 21 mmol/L (22-30); Chloride 107 mmol/L (98-107); Estimated Glomerular Filt Rate > 60; Glucose 138 mg/dL (65-110); Potassium 3.6 mmol/L (3.4-5.0); Sodium 136 mmol/L (137-145)
[2024-01-07 13:30] LABS: Procalcitonin 0.1 ng/mL
[2024-01-07 16:14] VITALS: BP 105/66; PULSE 89; RESP 15; TEMP 37.5; O2SAT 100
[2024-01-07 19:44] VITALS: BP 113/71; PULSE 81; RESP 16; TEMP 37.2; O2SAT 99
[2024-01-08] MEDS: cefTRIAXone 2 GM/NS 100 ML 2 GM/100 ML BAG IVPB (00:13)
[2024-01-08 00:18] VITALS: TEMP 37.3
[2024-01-08] MEDS: CLINDAMYCIN 900 MG/D5W 50 ML 900 MG/50 ML PIGGYBACK 50 MG IVPB ×3 (00:43→16:12)
[2024-01-08] MEDS: metroNIDAZOLE 500 MG/ISO 100ML 500 MG/100 ML BAG 100 MG IVPB ×3 (00:43→17:10)
[2024-01-08 05:40] VITALS: BP 106/65; PULSE 77; RESP 18; TEMP 36.9; O2SAT 98
[2024-01-08] MEDS: SACCHAROMYCES BOULARDII 250 MG CAPSULE PO ×2 (08:06→16:12)
[2024-01-08 14:00] VITALS: BP 111/69; PULSE 85; RESP 16; TEMP 37.2; O2SAT 100
--- NOTE | 2024-01-08 15:38 | P.DS_ITS ---
DS: Admitting Diagnosis Discharge Date 01/08/2024 Admitting Diagnosis Cellulitis LUE DS: Discharge Diagnosis Discharge Diagnosis (1) Cellulitis of left upper extremity: Code(s): L03.114 - Cellulitis of left upper limb Status: Acute Assessment and Plan: * Due to allergy to PCN, transition from cefepime, metronidazole, clindamycin IV to Cleocin and Bactrim DS PO upon discharge (2) Dog bite of arm: Code(s): S41.159A - Open bite of unspecified upper arm, initial encounter; W54.0XXA - Bitten by dog, initial encounter Status: Acute Assessment and Plan: * As above DS: Summary Hospital Course Hospital Course: Admitted to acute care for dog bite on left upper extremity. Has severe erythema and edema. No crepitance. Negative imaging. Improved dramatically with IV Ceftriaxone. Transitioned oral antibiotics at discharge. Was to return if symptoms worsened. Time Spent with Patient Time attestation: Total time spent providing and/or coordinating discharge services: Exam Narrative: GENERAL: Well appearing, no acute distress. NECK: No JVD RESPIRATORY: respirations nonlabored. , no rales, wheezing. CARDIOVASCULAR: Regular rate and rhythm without murmurs. ABDOMINAL: Soft, nontender, nondistended, no hepatosplenomegaly. Normoactive BS. MUSCULOSKELETAL: ROM left wrist mildly limited by edema. SKIN: . Small puncture wound noted to the dorsal aspect of the wrist. Normal radial pulse. Normal sensation. Moderate edema around puncture with minimal erythema. NEURO: A&O X3. CN symmetric to inspection. DS: Data Data Completed and Pending Labs on day of discharge: Preliminary micro results at discharge 01/06/24 01:19 Blood Culture - Preliminary Blood 01/06/24 01:19 Blood Culture - Preliminary Blood Discharge Plan Discharge Consulting providers: Gita Disla; Marcelo Orantes; Evens Patel Discharging Clinician: Zain Gomes Patient Disposition: Home, Self-Care Activity: as tolerated Diet: regular Discharge Instructions: Keep left hand elevated to heart level while at rest until all swelling resolves. Use soluble fiber supplement and yogurt with active cultures to control diarrhea. May apply heat or ice to left wrist and forearm for 20 min every hour while awake. Off work 01/05/2024 through 01/16/2024. May return to work without restrictions 01/17/2024. Patient Instructions: Antibiotic Form Stand Alone Forms: General Discharge Information, Work/School Release IP Follow-up/Referrals: Yash Calixto, [Primary Care Provider] - 1 Week Discharge Medications: New sulfamethoxazole-trimethoprim [Bactrim DS] 800-160 mg tablet 1 tablet PO Q12H Qty: 14 0RF clindamycin HCl 300 mg capsule 300 mg PO Q6H Qty: 28 0RF ondansetron HCl 4 mg tablet 4 mg PO Q8H PRN (Reason: nausea and vomiting) Qty: 30 0RF Continued Lo Loestrin Fe 1 mg-10 mcg (24)/10 mcg (2) tablet 1 tablet PO DAILY Date of admission: 01/06/24 01:13 Primary Care Provider: Yash Calixto Admitting Provider: Jasbir Morejon Attending physician on admission: Zain Gomes Condition: Stable
== END 2024-01-08 18:31 | disposition home or self-care (01) ==
LOC: ANHED 01-06 01:16 → ANH3MED 01-07 08:43
PROVIDERS: Hospitalist; Admitting Provider Internal Medicine; Emergency Provider Physician Assistant; PCP Internal Medicine; Visit Provider Internal Medicine
DX: L03.114 Cellulitis of left upper limb (principal); S61.552A Open bite of left wrist, initial encounter; W54.0XXA Bitten by dog, initial encounter; M41.9 Scoliosis, unspecified
CPT/HCPCS: 36415; 73110; 80048; 84145; 85025; 85027; 85652; 86140; 87040; 90471; 90715; 96365; 96366; 96367; 96368; 96375; 99285; A9270; G0378; J0696; J1836; J2270; J2405

== ENCOUNTER 2024-02-26 11:02 | Outpatient (CLI) | payer OTHER, SELFPAY ==
--- NOTE | ~2024-02-26 | MM_ITS ---
EXAMINATION: MM screening melia BI w alla HISTORY: Screening mammogram TECHNIQUE: Craniocaudal and mediolateral oblique 3-D tomosynthesis images were obtained and synthetic 2-D images were generated. CAD analysis was submitted and interpreted. COMPARISON: 07/07/2022, 02/27/2021, 02/02/2020 BREAST PARENCHYMAL COMPOSITION:Dense: The breasts are heterogeneously dense, which may obscure small masses. FINDINGS: No suspicious mass, calcification, or architectural distortion are identified in either shahrzad ast to suggest malignancy. There has been no suspicious interval change. IMPRESSION: No mammographic evidence of malignancy. Recommend routine screening mammography in one year. BI-RADS Category 1: Negative Reviewed, dictated and finalized at location .
== END 2024-02-26 11:03 ==
PROVIDERS: Visit Provider Nurse Practitioner
DX: Z12.31 Encounter for screening mammogram for malignant neoplasm of breast (principal)
CPT/HCPCS: 77063; 77067

== ENCOUNTER 2024-06-15 15:03 | Outpatient (CLI) | payer OTHER, SELFPAY ==
--- NOTE | ~2024-06-15 | MR_ITS ---
EXAMINATION: MR lumbar spine wo con DATE: 06/15/2024 15:41 INDICATION: Lumbago. TECHNIQUE: Magnetic resonance imaging (MRI) of the lumbar spine was performed without intravenous con trast. Sequences included sagittal T2-weighted FSE, sagittal T2-weighted FS FSE, sagittal T1-weighted FSE, and axial T2-weighted FSE. COMPARISON: None FINDINGS: There is 8 degrees levocurvature of lumbar spine. Vertebral body heights are normal. Interv ertebral disc heights are normal. The distal spinal cord signal intensity is normal. The conus medull gaston is at L1. The following disc levels are specifically discussed: L1-L2: The disc does not extend beyond the endplate margin. There is mild right facet joint osteoarth ritis. There is no neural foraminal stenosis. There is no central canal stenosis. L2-L3: The disc does not extend beyond the endplate margin. There is mild right facet joint osteoarth ritis. There is no neural foraminal stenosis. There is no central canal stenosis. L3-L4: The disc does not extend beyond the endplate margin. There is mild bilateral facet joint osteo arthritis. There is no neural foraminal stenosis. There is no central canal stenosis. L4-L5: The disc does not extend beyond the endplate margin. There is mild bilateral facet joint osteo arthritis. There is no neural foraminal stenosis. There is no central canal stenosis. L5-S1: The disc is bulging and has an annular fissure. There is moderate bilateral facet joint osteoa rthritis. There is mild bilateral neural foraminal stenosis. There is mild central canal stenosis. IMPRESSION: 1. Mild lumbar spondylosis. Reviewed, dictated and finalized at location A. IMPRESSION: 1. Mild lumbar spondylosis.
== END 2024-06-15 15:04 | disposition home or self-care (01) ==
LOC: MICIMG 15:05
PROVIDERS: Visit Provider Nurse Practitioner Family
DX: M47.896 Other spondylosis, lumbar region (principal)
CPT/HCPCS: 72148

== ENCOUNTER 2025-07-20 11:59 | Outpatient (CLI) | payer OTHER, SELFPAY ==
--- NOTE | ~2025-07-20 | MM_ITS ---
EXAMINATION: MM screening melia BI w alla HISTORY: Screening TECHNIQUE: Craniocaudal and mediolateral oblique 3-D tomosynthesis images were obtained and synthetic 2-D images were generated. CAD analysis was submitted and interpreted. COMPARISON: 01/15/2020 BREAST PARENCHYMAL COMPOSITION: The breasts are extremely dense, which lowers the sensitivity of mammography. FINDINGS: There is no evidence of suspicious mass, calcification, or architectural distortion to suggest malignancy. There has been no suspicious interval change. IMPRESSION: 1. No mammographic evidence of malignancy. Recommend routine screening mammography in one year. BI-RADS Category 2: Benign finding(s) Reviewed, dictated and finalized at location Q. IMPRESSION: 1. No mammographic evidence of malignancy. Recommend routine screening mammogra phy in one year. BI-RADS Category 2: Benign finding(s)
== END 2025-07-20 12:00 | disposition home or self-care (01) ==
LOC: MICIMG 12:00
PROVIDERS: PCP Nurse Practitioner; Visit Provider Nurse Practitioner
DX: Z12.31 Encounter for screening mammogram for malignant neoplasm of breast (principal)
CPT/HCPCS: 77063; 77067